=== PATIENT | female | born 1960 | race Caucasian/White ===

== ENCOUNTER → 2018-09-23 | Outpatient (CLI) | payer OTHER ==
--- NOTE | 2018-09-23 12:30 | RAD ---
Indication: Left hip pain TECHNIQUE: 2 views of the left hip COMPARISON: None Findings/ impression: No acute fracture or dislocation. No significant evidence of osteoarthritis. Electronically signed by: George Spring DO (09/23/2018 12:27 PM) [facility]
--- NOTE | 2018-09-23 15:01 | RAD ---
Indication:Arthritis. Pain. TECHNIQUE: 2 views of the left foot COMPARISON:None FINDINGS: Nondisplaced fracture is seen of the proximal phalanx of the fifth toe. Chronically correlate with focal tenderness. No evidence of osteoarthritis. IMPRESSION: As above. Electronically signed by: George Spring DO (09/23/2018 2:58 PM) [facility]
== END | disposition home or self-care (01) ==
LOC: RAD 11:07
PROVIDERS: ATTEND Pediatrics Neonatal-Perinatal Medicine
DX: Z02.71 Encounter for disability determination (principal); S92.505A Nondisplaced unspecified fracture of left lesser toe(s), initial encounter for closed fracture; M25.552 Pain in left hip; M13.872 Other specified arthritis, left ankle and foot; X58.XXXA Exposure to other specified factors, initial encounter; Y93.89 Activity, other specified; Y92.89 Other specified places as the place of occurrence of the external cause; Y99.8 Other external cause status
CPT/HCPCS: 73502; 73620

== ENCOUNTER → 2020-01-24 | Outpatient (CLI) | payer MEDICAID | LOC: SLPLAB 19:13 | PROVIDERS: ATTEND Family Medicine | DX: G47.33 Obstructive sleep apnea (adult) (pediatric) (principal) | CPT/HCPCS: 95810 ==

== ENCOUNTER 2021-07-10 07:28 | Emergency (ER) | payer MEDICAID ==
[~2021-07-10] VITALS: Ht 165.1 cm; Wt 62.6 kg
[2021-07-10] MEDS ORDERED: methylPREDNISolone SOD SUCC PF 125 MG/2 ML VIAL. IV ONE (07:45)
[2021-07-10] MEDS ORDERED: IPRATRPIUM/ALBUTEROL 0.5/2.5MG 3 ML NEBU. NEB ONE (07:45)
--- NOTE | 2021-07-10 08:05 | PHYS DOC ---
Past Medical History Additional Past Medical Histor: R LUNG CA Past Surgical History: Other Additional Past Surgical Histo: R PAC Adult General Chief Complaint Chief Complaint: UPPER EXTREMITY PAIN HPI HPI Patient is a 61 year old female who presents with cough and congestion. Has been ill over the last 2 weeks. Complains of productive cough of yellow and green sputum. Mild shortness of breath symptoms. She does have history of known COPD. She is currently in a drug rehabilitation program where she has been for the last week. 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 No chest pain. Does not have access to her usual inhalers and COPD treatment as due to her current placement in rehab. Also complains of pain in the right arm. The right forearm and upper arm. Has been present for 2 weeks as well. She states it feels like muscle pain. Denies that she has had any injury. No strenuous activity. No fever. She is eating and drinking normally. No abdominal pain or changes in elimination patterns. Review of Systems Review of Systems Constitutional: + chills Eyes: Denies change in visual acuity HENT: as documented in HPI Respiratory: as documented in HPI Cardiovascular: No additional information not addressed in HPI GI: Denies abdominal pain, nausea, vomiting : Denies dysuria or hematuria Musculoskeletal: right arm pain Integument: Denies rash or skin lesions Neurologic: Denies headache or other neurologic complaints Endocrine: Denies All other systems were reviewed and found to be within normal limits, except as documented in this note. Current Medications Current Medications Current Medications Medications (Trade) Dose Ordered Sig/Floyd Start Time Stop Time Status Last Admin Dose Admin Albuterol/ Ipratropium (Duoneb) 3 ml 1X ONCE 07/10/21 07:45 07/10/21 07:46 DC 07/10/21 08:02 3 ML Info (CONTRAST GIVEN -- Rx MONITORING) 1 each PRN DAILY PRN 07/10/21 10:30 07/12/21 10:29 Iohexol (Omnipaque 350 Mg/ml) 100 ml 1X ONCE 07/10/21 10:15 07/10/21 10:24 DC 07/10/21 10:15 100 ML Methylprednisolone Sodium Succinate (SOLU-Medrol 125MG VIAL) 125 mg 1X ONCE 07/10/21 07:45 07/10/21 07:46 DC 07/10/21 08:10 125 MG Allergies Allergies Allergies Coded Allergies Type Severity Reaction Last Updated Verified clarithromycin Allergy Intermediate UNKNOWN 07/10/21 Yes codeine Allergy Intermediate UNKNOWN 07/10/21 Yes fentanyl Allergy Intermediate UNKNOWN 07/10/21 Yes Physical Exam Physical Exam Constitutional: Well developed, well nourished, no acute distress, non-toxic appearance HENT: bilateral external ears normal, oropharynx moist, no oral exudates, nose normal Eyes: PERRLA, EOMI, conjunctiva normal Neck: Normal range of motion, no tenderness Cardiovascular:Heart rate regular rhythm, no murmur Lungs & Thorax: Bilateral breath sounds clear to auscultation Abdomen: Bowel sounds normal Skin: Warm, dry, no erythema, no rash. Back: Normal ROM Extremities: No tenderness, no cyanosis, no clubbing, ROM intact, no edema Neurologic: Alert and oriented X 3, normal motor function Psychologic: Affect normal Current Patient Data Vital Signs Vital Signs Date Time Temp Pulse Resp B/P (MAP) Pulse Ox O2 Delivery O2 Flow Rate FiO2 07/10/21 10:08 88 28 117/61 (79) 97 Nasal Cannula 2.0 07/10/21 07:30 98.0 98.0 Lab Values Laboratory Tests Test 07/10/21 07:52 White Blood Count 8.1 x10^3/uL (4.0-11.0) Red Blood Count 5.37 x10^6/uL (3.50-5.40) Hemoglobin 12.9 g/dL (12.0-15.5) Hematocrit 40.1 % (36.0-47.0) Mean Corpuscular Volume 75 fL (79-100) L Mean Corpuscular Hemoglobin 24 pg (25-35) L Mean Corpuscular Hemoglobin Concent 32 g/dL (31-37) Red Cell Distribution Width 19.6 % (11.5-14.5) H Platelet Count 349 x10^3/uL (140-400) Neutrophils (%) (Auto) 68 % (31-73) Lymphocytes (%) (Auto) 22 % (24-48) L Monocytes (%) (Auto) 5 % (0-9) Eosinophils (%) (Auto) 4 % (0-3) H Basophils (%) (Auto) 2 % (0-3) Neutrophils # (Auto) 5.5 x10^3/uL (1.8-7.7) Lymphocytes # (Auto) 1.8 x10^3/uL (1.0-4.8) Monocytes # (Auto) 0.4 x10^3/uL (0.0-1.1) Eosinophils # (Auto) 0.3 x10^3/uL (0.0-0.7) Basophils # (Auto) 0.1 x10^3/uL (0.0-0.2) D-Dimer (Yue) 0.64 ug/mlFEU (0.00-0.50) H Sodium Level 138 mmol/L (136-145) Potassium Level 4.1 mmol/L (3.5-5.1) Chloride Level 104 mmol/L (98-107) Carbon Dioxide Level 25 mmol/L (21-32) Anion Gap 9 (6-14) Blood Urea Nitrogen 18 mg/dL (7-20) Creatinine 0.9 mg/dL (0.6-1.0) Estimated GFR (Cockcroft-Gault) 63.4 Glucose Level 162 mg/dL (70-99) H Calcium Level 8.7 mg/dL (8.5-10.1) Troponin I High Sensitivity 8 ng/L (4-50) YB-Qyo-G-Type Natriuretic Peptide 70 pg/mL (0-124) Laboratory Tests 07/10/21 07:52 Laboratory Tests 07/10/21 07:52 EKG EKG 08:00: Normal sinus rhythm. Rate 79. Radiology/Procedures Radiology/Procedures [] Course & Med Decision Making Course & Med Decision Making Pertinent Labs and Imaging studies reviewed. (See chart for details) Patient is seen and examined on arrival to her room. She does have a wheezy and congested sounding cough during the interview but her lungs are clear. She has no increased work of breathing. She does complain of muscle pain in the right arm but overall has a normal physical examination in that area. 2+ radial pulses. Pain seems to be in the muscles of the forearm and the upper arm. Worse when she ranges against resistance. Distal capillary refill is less than 2 seconds. 11:00: All results are reviewed and discussed with the patient. No elevated white count. No acute findings on her plain film imaging. Her D-dimer was mildly elevated and she underwent CT scan with angiography to rule out pulmonary embolus. This diagnosis was not present. Suspect COPD exacerbation to be the cause for her symptoms. She is treated today and was given Solu-Medrol in the ER. She is placed on prednisone over the next 5 days and placed on azithromycin as well. The first dose of this was also given in the ER. I did give her prescription of refill for her normal inhaled albuterol. Stable for discharge home and did not require admission or further work-up in the emergency department or hospital [place]varado Disclaimer Dragon Disclaimer This electronic medical record was generated, in whole or in part, using a voice recognition dictation system. Departure Departure Impression: Primary Impression: Bronchitis Additional Impression: URI (upper respiratory infection) Disposition: HOME / SELF CARE / HOMELESS Condition: GOOD Referrals: CONSTANTINO ADAME MD (PCP) Patient Instructions: Acute Bronchitis Scripts Ibuprofen (IBUPROFEN) 800 Mg Tablet 800 MG PO PRN TID PRN for PAIN, #15 TAB take with food or milk to avoid upsetting stomach Prov: JASPREET LEZAMA DO 07/10/21 Levofloxacin (LEVOFLOXACIN) 500 Mg Tablet 1 TAB PO DAILY for 4 Days, #4 TAB Prov: JASPREET LEZAMA DO 07/10/21 Prednisone (PREDNISONE) 50 Mg Tablet 1 TAB PO DAILY for 4 Days, #4 TAB Prov: JASPREET LEZAMA DO 07/10/21 Albuterol Sulfate (PROAIR HFA INHALER) 8.5 Gm Hfa.aer.ad 2 PUFF IH PRN Q4-6HRS PRN for wheezing for 21 Days, #1 INHALER 0 Refills Prov: JASPREET LEZAMA DO 07/10/21 Problem Qualifiers JASPREET LEZAMA DO July 10, 2021 08:05
[2021-07-10 08:08] LABS: BASO # 0.1 x10^3/uL (0.0-0.2); BASO % 2 % (0-3); EOS # 0.3 x10^3/uL (0.0-0.7); EOS % 4 % (0-3); HEMATOCRIT 40.1 % (36.0-47.0); HEMOGLOBIN 12.9 g/dL (12.0-15.5); LYMPH # 1.8 x10^3/uL (1.0-4.8); LYMPH % 22 % (24-48); MEAN CORPUSCULAR HEMOGLOBIN 24 pg (25-35); MEAN CORPUSCULAR HGB CONC 32 g/dL (31-37); MEAN CORPUSCULAR VOLUME 75 fL (79-100); MONO # 0.4 x10^3/uL (0.0-1.1); MONO % 5 % (0-9); NEUT # 5.5 x10^3/uL (1.8-7.7); NEUT % 68 % (31-73); PLATELET COUNT 349 x10^3/uL (140-400); RED BLOOD COUNT 5.37 x10^6/uL (3.50-5.40); RED CELL DISTRIBUTION WIDTH 19.6 % (11.5-14.5); WHITE BLOOD COUNT 8.1 x10^3/uL (4.0-11.0)
--- NOTE | 2021-07-10 08:19 | RAD ---
XR CHEST 1V Clinical History: Reason: cough, dyspnea / Spl. Instructions: / History: Technique: AP view of the chest was obtained at 07/10/2021 7:53 AM. Comparison: May 13, 2021. Findings: The cardiomediastinal silhouette is normal. The pulmonary vasculature is normal. There is a right-joao ed Port-A-Cath. There is linear opacities left upper lobe volume loss and shift of the trachea to the left. The patient is also rotated to the left. Impression: Chronic changes in the left upper lobe. Stable appearance of the chest. Electronically signed by: Jagdish Cabral III, MD (07/10/2021 8:17 AM) [facility]
[2021-07-10 08:25] LABS: CALCIUM 8.7 mg/dL (8.5-10.1); CREATININE 0.9 mg/dL (0.6-1.0); GFR 63.4; POTASSIUM 4.1 mmol/L (3.5-5.1)
[2021-07-10] MEDS ORDERED: IOHEXOL 350 MG/ML 100 ML VIAL. IV ONE (10:15)
[2021-07-10] MEDS ORDERED: CONTRAST GIVEN. MC PRN (10:30)
--- NOTE | 2021-07-10 10:57 | RAD ---
Study: CT CHEST WITH CONTRAST - PULMONARY ANGIOGRAM History: Dyspnea, elevated d-dimer Comparison: CT chest 01/29/2021 Technique: Helical CT of the chest performed after the administration of 100 mL Omnipaque 350 intrav enous contrast and timed for angiographic evaluation of the pulmonary arteries per PE protocol. Coron al and sagittal 3D MIP reformations were obtained. One or more of the following individualized dose reduction techniques were utilized for this examinat ion: 1. Automated exposure control 2. Adjustment of the mA and/or kV according to patient size 3. Use of iterative reconstruction technique. Findings: Pulmonary Arteries: Contrast bolus is adequate. No acute pulmonary embolism. Heart/Systemic Vasculature: The heart is normal in size. No pericardial effusion. Thoracic aorta is n ormal in caliber. No aortic dissection. There is a right chest wall port with tip terminating at the superior cavoatrial junction. Mediastinum: Mild bilateral hilar lymphadenopathy. Small hiatal hernia. Lungs: Confluent opacities in the left suprahilar region extending to the lateral and posterior apex are unchanged to slightly increased. There is associated architectural distortion and volume loss. Th is may represent progression of treatment changes. Underlying malignancy not excluded. Mild atelectas is in the right lower lobe. There is mild centrilobular emphysema. Neck/Axilla/Body Wall: No axillary lymphadenopathy. Upper Abdomen: There is a partially visualized 3.2 cm simple appearing cyst in the right kidney. Bones: No acute osseous abnormality. Miscellaneous: None. IMPRESSION: 1. No acute pulmonary embolism. 2. Unchanged to slightly increased confluent opacities in the left suprahilar region with volume los s and architectural distortion, likely treatment-related changes. Underlying residual malignancy not excluded. 3. Small hiatal hernia. Electronically signed by: Daniella Heart MD (07/10/2021 10:55 AM) [id number]
[2021-07-10 11:08] VITALS: BP 128/66
[2021-07-10] MEDS ORDERED: IBUP-1060 PO (11:08)
[2021-07-10] MEDS ORDERED: LEVO500T9 PO (11:08)
[2021-07-10] MEDS ORDERED: ALBU2.5V8 IH (11:08)
[2021-07-10] MEDS ORDERED: PRED50TA PO (11:08)
--- NOTE | 2021-07-10 19:06 | EKG ---
[facility] [address] [place] [id number] Test Date: 2021-07-10 Test Time: 07:53:11 Pat Name: LOURDES LINO Department: Room: Gender: F [employer]: : 1960 Requested By: JASPREET LEZAMA Order Number: [id number] Reading MD: Tyrone Salmeron MD Measurements Intervals [place] Rate: 79 P: 191 DE: 228 QRS: 90 QRSD: 78 T: 71 QT: 392 QTc: 456 Interpretive Statements SINUS RHYTHM 1ST DEGREE AV BLOCK Electronically Signed On 07-16-2021 9:23:54 CDT by Tyrone Salmeron MD
== END 2021-07-10 11:29 | disposition home or self-care (01) ==
LOC: ER 07:28
DX: J40 Bronchitis, not specified as acute or chronic (principal); J06.9 Acute upper respiratory infection, unspecified; Z88.1 Allergy status to other antibiotic agents; Z88.4 Allergy status to anesthetic agent; Z88.5 Allergy status to narcotic agent
CPT/HCPCS: 36415; 71045; 71275; 80048; 83880; 84484; 85025; 85379; 93005; 94640; 96374; 99285; J2930; Q9967